=== PATIENT | female | born 1950 | race Caucasian/White ===

== ENCOUNTER 2020-09-09 13:27 | Outpatient (RCR) | payer MEDICARE, MEDICAID, SELFPAY | END 2021-01-23 08:41 | disposition other institution (70) | LOC: HO.PTWFD 13:27 | PROVIDERS: Visit Provider Physical Medicine & Rehabilitation | DX: M54.2 Cervicalgia (principal); M54.6 Pain in thoracic spine ==

== ENCOUNTER 2020-11-05 13:00 | Outpatient (RCR) | payer MEDICARE, MEDICAID, SELFPAY | END 2020-12-05 11:05 | disposition other institution (70) | LOC: HO.PTWFD 13:00 | PROVIDERS: Visit Provider Physician Assistant Medical | DX: M54.2 Cervicalgia (principal); M54.6 Pain in thoracic spine | CPT/HCPCS: 97035; 97110; 97140; 97161; 97164; 97535 ==

== ENCOUNTER 2024-08-22 14:36 | Outpatient (REF) | payer MEDICARE, SELFPAY ==
[2024-08-22 18:15] LABS: Anion Gap 13 (12-20); Blood Urea Nitrogen 17 mg/dL (9-16); Calcium 9.4 mg/dL (8.4-10.2); Carbon Dioxide 25 mmol/L (22-29); Chloride 106 mmol/L (96-108); Estimated Glomerular Filt Rate > 60; Glucose Random 93 mg/dL (60-115); Potassium 4.3 mmol/L (3.3-5.1); Sodium 140 mmol/L (135-145)
[2024-08-22 19:04] LABS: TSH reflex Free T4 1.47 uIU/mL (0.32-4.0)
[2024-08-22 21:51] LABS: Vitamin B12 446 pg/mL (200-900)
== END 2024-08-22 14:37 | disposition home or self-care (01) ==
LOC: HO.LAB 14:36
PROVIDERS: Visit Provider Psychiatry & Neurology Neurology
DX: G31.84 Mild cognitive impairment of uncertain or unknown etiology (principal)
CPT/HCPCS: 36415; 80048; 82607; 82746; 84443